=== PATIENT | female | born 1990 | race Caucasian/White ===

== ENCOUNTER 2021-11-07 17:06 | Emergency (ER) | payer BC, SELFPAY ==
[2021-11-07 17:42] VITALS: BP 114/72; PULSE 95; RESP 18; TEMP 36.6; O2SAT 99
--- NOTE | 2021-11-07 17:56 | ED.URI ---
HPI - URI/Sore Throat General Chief Complaint: Upper Respiratory Infection Stated Complaint: sob,cough,sinus pressure,nasal drainage with color Time Seen by Provider: 11/07/21 17:56 Source: patient Mode of arrival: ambulatory Limitations: no limitations History of Present Illness HPI Narrative: 31-year-old female with history of asthma, 32 weeks gestation presents with complaint of sinus pressure, sinus congestion, postnasal drainage for approximately 10 to 14 days. Was seen at a another urgent care 3 to 4 days ago and was told to take a decongestant. Had a negative influenza and COVID test. Patient reports symptoms not improving now has a cough and is feeling short of breath. Uses her Advair daily, has been using albuterol daily due to feeling short of breath. No chest pain or chest tightness at this time. Afebrile. Denies nausea vomiting diarrhea. All systems reviewed and negative except as noted above. Related Data Home Medications Medication Instructions Recorded Confirmed fluticasone propion-salmeterol 1 inh INHALATION BID 11/07/21 11/07/21 [Advair Diskus] insulin NPH isoph U-100 human 32 unit SUBCUT HS 11/07/21 11/07/21 [Novolin N Flexpen] [id number] fum-folic [id number] 1 pkg PO DAILY 11/07/21 11/07/21 [Daily ] Allergies Allergy/AdvReac Type Severity Reaction Status Date / Time No Known Allergies Allergy Verified 11/07/21 17:51 Review of Systems Review of Systems: CONSTITUTIONAL: Denies fever, chills, or sweats. EYES: Denies visual changes, redness, or discharge. ENT: Reports rhinorrhea, congestion, sore throat, sinus congestion, pressure. Denies otalgia. CARDIOVASCULAR: Denies chest pain, palpitations, or edema. RESPIRATORY: Reports cough and dyspnea. GASTROINTESTINAL: Denies abdominal pain, nausea, vomiting, or diarrhea. GENITOURINARY: Denies dysuria or hematuria. SKIN: Denies rash or itching. MUSCULOSKELETAL: Denies back pain, joint pain, or myalgia. NEUROLOGIC: Denies headache, numbness, or weakness. PSYCHIATRIC: Denies anxiety or depression. All other systems reviewed are negative, except as documented in HPI. COUNT INCLUDES THE [facility] Comments At time of signature, agree with nursing past medical, surgical, social and family history. There is no relevant family history pertinent to the presenting complaint. Exam Narrative: GENERAL: This is a well-nourished, well-developed patient, in no apparent distress. HEAD: normocephalic, atraumatic. EYES: PERRL. Sclera clear/white. Vision is grossly intact. EARS: External ears normal, auditory canals clear and without drainage, fluid to bilateral TMs. NOSE: External nose normal with erythema to bilateral nares, mild swelling. Clear nasal drainage, moderate congestion. Maxillary sinus tenderness. THROAT: Mucous membranes moist, clear postnasal drainage. NECK: Neck supple, non-tender without lymphadenopathy, masses or thyromegaly. CARDIOVASCULAR: Regular rate and rhythm without murmurs, gallops, or rubs. RESPIRATORY: Clear to auscultation. Breath sounds equal bilaterally. No wheezes, rales, or rhonchi. SKIN: warm, Dry, intact with no suspicious lesions or rash, good texture and turgor. NEURO: awake, alert, and oriented to person, place and time. There were no obvious focal neurologic abnormalities. EXTREMITIES: Normal range of motion to all extremities. Course Course Level of Care: Express Care Visit Vital Signs Vital signs: Vital Signs Temperature 36.6 C 11/07/21 17:42 Pulse Rate 95 11/07/21 17:42 Respiratory Rate 18 11/07/21 17:42 Blood Pressure 114/72 11/07/21 17:42 Pulse Oximetry 99 11/07/21 17:42 Temperature 36.6 C 11/07/21 17:42 Pulse Rate 95 11/07/21 17:42 Respiratory Rate 18 11/07/21 17:42 Blood Pressure 114/72 11/07/21 17:42 Pulse Oximetry 99 11/07/21 17:42 Reviewed MDM - URI/Sore Throat MDM Narrative Medical decision making narrative: Patient is aware of diagnosis, understands and agrees to treatment
== END 2021-11-07 18:15 | disposition home or self-care (01) ==
PROVIDERS: Emergency Provider Nurse Practitioner Family; PCP Family Medicine
DX: O99.513 Diseases of the respiratory system complicating pregnancy, third trimester (principal); Z3A.32 32 weeks gestation of pregnancy; J01.90 Acute sinusitis, unspecified; J45.901 Unspecified asthma with (acute) exacerbation; O24.414 Gestational diabetes mellitus in pregnancy, insulin controlled
CPT/HCPCS: 99213; G0463

== ENCOUNTER 2022-08-16 08:04 | Emergency (ER) | payer BC, SELFPAY ==
[2022-08-16 08:14] VITALS: BP 117/71; PULSE 88; RESP 18; TEMP 36.8; O2SAT 99
--- NOTE | 2022-08-16 08:35 | ED.URI ---
HPI - URI/Sore Throat General Chief Complaint: Upper Respiratory Infection Stated Complaint: Congestion,Runny Nose Time Seen by Provider: 08/16/22 08:27 Source: patient Mode of arrival: ambulatory Limitations: no limitations History of Present Illness HPI Narrative: Patient presents today with a 2 day history of cough, congestion, postnasal drip, rhinorrhea. Denies fever or shortness of breath. She has been taking DayQuil, NyQuil, and Delsym with some relief. History of asthma. She has not had to use her rescue inhaler. Patient works in an elementary school with multiple sick contacts. Related Data Home Medications Medication Instructions Recorded Confirmed fluticasone 100 mcg-salmeterol 50 1 inh inhalation BID 11/07/21 08/16/22 mcg/dose blistr powdr for inhalation (Advair Diskus) cetirizine 10 mg tablet (Zyrtec) 10 mg PO DAILY PRN Allergic 08/16/22 08/16/22 Symptoms Allergies Allergy/AdvReac Type Severity Reaction Status Date / Time No Known Allergies Allergy Verified 08/16/22 08:10 Review of Systems Review of Systems: CONSTITUTIONAL: Denies body aches, fever, chills, or sweats. EYES: Denies visual changes, redness, or discharge. ENT: Denies sore throat, or otalgia.+ congestion, rhinorrhea, postnasal drip CARDIOVASCULAR: Denies chest pain, palpitations, or edema. RESPIRATORY: Denies dyspnea.+ cough GASTROINTESTINAL: Denies abdominal pain, nausea, vomiting, or diarrhea. GENITOURINARY: Denies dysuria or hematuria. SKIN: Denies rash, itching, or wounds. MUSCULOSKELETAL: Denies back pain, joint pain, or myalgia. NEUROLOGIC: Denies headache, numbness, tingling, or weakness. PSYCH: Denies depression or anxiety. [facility] Past Medical History Medical History (Updated 08/16/22 @ 08:40 by Paige Stoll, [employer], ) Asthma Comments At time of signature, I have reviewed and agree with nursing past medical, surgical, social and family history unless otherwise noted. Please see nursing chart for further information. There is no relevant family history pertinent to the presenting complaint Exam Narrative: GENERAL: Well-appearing, well-nourished, and in no acute distress. HEAD: Normocephalic, atraumatic. EYES: EOMI. No redness or drainage. Conjunctivae normal. ENT: Mucous membranes pink and moist. Nares congested with rhinorrhea. TMs normal bilaterally. Throat normal. Uvula midline. NECK: Normal AROM. Supple. No lymphadenopathy. CHEST: No respiratory distress. Clear to auscultation. HEART: Regular rate and rhythm. No murmur appreciated. Normal peripheral pulses. EXTREMITIES: Normal range of motion. No edema. SKIN: Warm, dry, no rash. Capillary refill normal. Normal skin turgor. NEURO: No focal deficits. Alert and oriented x3. Gait steady. PSYCH: Normal affect. No signs of depression or anxiety. Course Course Level of Care: Express Care Visit Vital Signs Vital signs: Vital Signs Temperature 98.3 F 08/16/22 08:14 Pulse Rate 88 08/16/22 08:14 Respiratory Rate 18 08/16/22 08:14 Blood Pressure 117/71 08/16/22 08:14 Pulse Oximetry 99 08/16/22 08:14 Oxygen Delivery Room Air 08/16/22 08:14 Temperature 98.3 F 08/16/22 08:14 Pulse Rate 88 08/16/22 08:14 Respiratory Rate 18 08/16/22 08:14 Blood Pressure 117/71 08/16/22 08:14 Pulse Oximetry 99 08/16/22 08:14 Oxygen Delivery Room Air 08/16/22 08:14 Reviewed MDM - URI/Sore Throat MDM Narrative Medical decision making narrative: Symptoms consistent with URI. No prescriptions indicated at this time. Anticipatory guidance given. Differential Diagnosis Differential diagnosis: Likely upper respiratory infection, sinusitis, viral infection and bronchitis Critical Care Time Critical Care Time Critical Care Time: No Discharge Plan Discharge Clinical Impression: Upper respiratory infection Qualifiers: URI type: unspecified URI Qualified Code(s): J06.9 - Acute upper respiratory infection, unspecifie
== END 2022-08-16 08:41 | disposition home or self-care (01) ==
PROVIDERS: Emergency Provider Nurse Practitioner; PCP Family Medicine
DX: J06.9 Acute upper respiratory infection, unspecified (principal)
CPT/HCPCS: 99211; G0463

== ENCOUNTER 2022-08-20 17:40 | Emergency (ER) | payer BC, SELFPAY ==
--- NOTE | 2022-08-20 17:43 | ED.URI ---
HPI - URI/Sore Throat General Chief Complaint: Upper Respiratory Infection Stated Complaint: sorethroat,lt ear pain Time Seen by Provider: 08/20/22 17:45 Source: patient Mode of arrival: ambulatory Limitations: no limitations History of Present Illness HPI Narrative: Ebony is a 31-year-old female patient presenting to the clinic today with complaints of sore throat left-sided ear pain. She reports she has had cough and nasal congestion x 1 week. Sore throat and left ear pain started yesterday. Has had a low grade temp. MD elicited complaint: sore throat and other (Left ear pain) Related Data Home Medications Medication Instructions Recorded Confirmed fluticasone 100 mcg-salmeterol 50 1 inh inhalation BID 11/07/21 08/20/22 mcg/dose blistr powdr for inhalation (Advair Diskus) cetirizine 10 mg tablet (Zyrtec) 10 mg PO DAILY PRN Allergic 08/16/22 08/20/22 Symptoms Allergies Allergy/AdvReac Type Severity Reaction Status Date / Time No Known Allergies Allergy Verified 08/20/22 18:01 Review of Systems Review of Systems: Pertinent positives per HPI. Patient denies any rash, headache, visual changes, dizziness, shortness of breath, chest pain, palpitations, nausea, vomiting, diarrhea, constipation, abdominal pain, or any urinary issues. [facility] Past Medical History Medical History Asthma Comments At the time of my signature, I reviewed and agree with the nursing past medical, surgical, social, and family history. There is no relevant family history pertinent to the patient complaint. Exam Narrative: General: Well-developed, well nourished, in no apparent distress Head: Normocephalic, atraumatic Eyes: Pupils equally round and reactive to light bilaterally, EOM intact, sclera and conjunctive clear, no discharge, lids normal Ears: TMs intact and clear, ear canals clear, no drainage, grossly hearing normal. Nose: Nares patent, no discharge, no inflammation, no sinus tenderness. Mouth: Oral pharynx without lesions or masses, good dentition, MMM. Neck: Supple, trachea midline, no enlargement of anterior or posterior cervical nodes, no thyroid masses or goiter palpable. Cardio: Regular rate and rhythm, s1 and s2 normal, no murmur appreciated. Resp: Clear to auscultation bilaterally, no rhonchi, rales, wheezing or rubs Course Course Emergency Course: Portions of this record may have been created with voice recognition software. Level of Care: Express Care Visit Vital Signs Vital signs: Vital Signs Temperature 37.2 C 08/20/22 18:01 Pulse Rate 89 08/20/22 18:01 Respiratory Rate 18 08/20/22 18:01 Blood Pressure 123/76 08/20/22 18:01 Pulse Oximetry 100 08/20/22 18:01 Temperature 37.2 C 08/20/22 18:01 Pulse Rate 89 08/20/22 18:01 Respiratory Rate 18 08/20/22 18:01 Blood Pressure 123/76 08/20/22 18:01 Pulse Oximetry 100 08/20/22 18:01 Vital signs reviewed MDM - URI/Sore Throat MDM Narrative Medical decision making narrative: At the time of visit patient is resting comfortably on the exam table. Strep screen was obtained was positive in the clinic today. Prescription for amoxicillin was sent to pharmacy supportive measures were discussed with the patient she voiced understanding discharge instructions and agrees to treatment plan. Differential Diagnosis Differential diagnosis: Likely upper respiratory infection, sinusitis, viral infection, influenza, pharyngitis and other (COVID) Lab Data Labs: Strep Screen Positive Group A Strep *(Reference Range: Negative)* Discharge Plan Discharge Clinical Impression: Acute streptococcal pharyngitis Patient Disposition: Home, Self-Care Condition: Stable Instructions: Antibiotic Form, Strep Throat (ED) Additional Instructions: Strep screen was positive in the clinic today Take presc
[2022-08-20 18:01] VITALS: BP 123/76; PULSE 89; RESP 18; TEMP 37.2; O2SAT 100
== END 2022-08-20 18:06 | disposition home or self-care (01) ==
PROVIDERS: Emergency Provider Nurse Practitioner Family; PCP Family Medicine
DX: J02.0 Streptococcal pharyngitis (principal); J45.909 Unspecified asthma, uncomplicated
CPT/HCPCS: 87880; 99213; G0463